=== PATIENT | male | born 1980 | race Caucasian/White ===

== ENCOUNTER 2021-07-28 02:55 | Emergency (ER) | payer MEDICAID ==
[~2021-07-28] VITALS: Ht 172.7 cm; Wt 74.8 kg
[2021-07-28 02:57] VITALS: BP 162/88
[2021-07-28 03:25] VITALS: BP 162/88
--- NOTE | 2021-07-28 03:26 | NUR ---
PATIENT [facility] POLICE DEPT. PATIENT EXAMINED BY DR. CHAVEZ. PATIENT MEDICALLY CLEARED AND RELEASED IN CUSTODY IN STABLE CONDITION. ORIGINAL PRE-BOOK FORM GIVEN TO OFFICER NIRAJ.
== END 2021-07-28 03:25 ==
LOC: MED 02:55
DX: Z02.89 Encounter for other administrative examinations (principal); V89.2XXA Person injured in unspecified motor-vehicle accident, traffic, initial encounter; Y93.89 Activity, other specified; Y92.89 Other specified places as the place of occurrence of the external cause; Y99.8 Other external cause status
CPT/HCPCS: 99283